=== PATIENT | male | born 1950 | race Caucasian/White ===

== ENCOUNTER 2022-07-09 14:37 | Emergency (ER) | payer MEDICARE, BC ==
[~2022-07-09] VITALS: Ht 175.3 cm; Wt 91.6 kg
--- NOTE | 2022-07-09 15:00 | NUR ---
BIBSELF MECH FALL LAST SUN, C/O CHIN PAIN + HEMATOMA.
--- NOTE | 2022-07-09 16:10 | NUR ---
PATIENT TAKEN TO CT- AMBULATORY
--- NOTE | 2022-07-09 17:31 | NUR ---
PATIENT SIGNED AMA DR GARCIA AWARE.
[2022-07-09 17:32] VITALS: BP 130/81
== END 2022-07-09 17:31 | disposition left against medical advice (07) ==
LOC: ER 14:39
DX: S00.83XA Contusion of other part of head, initial encounter (principal); I10 Essential (primary) hypertension; W22.8XXA Striking against or struck by other objects, initial encounter; Y93.89 Activity, other specified; Y92.89 Other specified places as the place of occurrence of the external cause; Y99.8 Other external cause status
CPT/HCPCS: 70486-TC